=== PATIENT | male | born 1990 | race Caucasian/White ===

== ENCOUNTER 2017-06-17 11:14 | Emergency (ER) | payer OTHER, BC ==
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
== END 2017-06-17 15:45 | disposition home or self-care (01) ==
LOC: JD.ED 11:14
DX: Z04.1 Encounter for examination and observation following transport accident (principal); F17.220 Nicotine dependence, chewing tobacco, uncomplicated; V57.5XXA Driver of pick-up truck or van injured in collision with fixed or stationary object in traffic accident, initial encounter; Y92.488 Other paved roadways as the place of occurrence of the external cause
CPT/HCPCS: 99284